=== PATIENT | male | born 2000 ===

== ENCOUNTER 2020-04-09 10:37 | Outpatient (REF) | payer MEDICAID, SELFPAY ==
[2020-04-11 15:29] LABS: COVID-19 RT-PCR UVMMC Result Negative (Negative)
== END 2020-04-09 10:57 ==
LOC: NCHCN 10:37
PROVIDERS: Visit Provider Internal Medicine
DX: Z20.828 Contact with and (suspected) exposure to other viral communicable diseases (principal)
CPT/HCPCS: U0003